=== PATIENT | male | born 1965 | race Caucasian/White ===

== ENCOUNTER 2017-12-12 14:23 | Emergency (ER) | payer BC ==
[2017-12-12] MEDS ORDERED: Ibuprofen 600 MG Tab PO ONE (14:47)
--- NOTE | 2017-12-12 14:47 | EDM.PDOC ---
ED HPI GENERAL MEDICAL PROBLEM - General Chief Complaint: Back Pain or Injury Stated Complaint: LOWER BACK PAIN, FELL OF A HORSE Time Seen by Provider: 12/12/17 14:23 Source of Information: Reports: Patient, Family History Limitations: Reports: No Limitations - History of Present Illness INITIAL COMMENTS - FREE TEXT/NARRATIVE: 52 y.o.w.m came to the ed a few days after he fell off his hours. He has lower back pain since, was at work and was asked to be check out in the ed. Pt had back pain in the past from prev injuries. Pt has difficulty to bed forward and turn his upper body. No N/V/d or dizziness No other acute medical issues. BP: 128/94 Pulse 60 RR 18 Pulse ox 98% on RA Temp 36.8 Onset Date: 12/08/17 Onset Time: 19:00 Duration: Day(s):, Getting Worse, Intermittent Location: Reports: Back Quality: Reports: Ache, Dull Improves with: Reports: None Worsens with: Reports: Movement Context: Reports: Trauma (fell of hourse) Associated Symptoms: Reports: No Other Symptoms lower back Pain Score (Numeric/FACES): 5 - Related Data Allergies Allergy/AdvReac Type Severity Reaction Status Date / Time No Known Allergies Allergy Verified 12/12/17 15:06 Home Meds: Home Meds Atenolol/Chlorthalidone [Atenolol-Chlorthalidone 50-25] 1 tab PO DAILY 12/12/17 [History] ED ROS GENERAL - Review of Systems Review Of Systems: See Below Constitutional: Reports: No Symptoms HEENT: Reports: No Symptoms Respiratory: Reports: No Symptoms Cardiovascular: Reports: No Symptoms Endocrine: Reports: No Symptoms GI/Abdominal: Reports: No Symptoms : Reports: No Symptoms Musculoskeletal: Reports: Back Pain Skin: Reports: No Symptoms Neurological: Reports: No Symptoms Psychiatric: Reports: No Symptoms Hematologic/Lymphatic: Reports: No Symptoms Immunologic: Reports: No Symptoms ED EXAM,LOWER BACK PAIN/INJURY - Physical Exam Exam: See Below Exam Limited By: No Limitations General Appearance: Alert, WD/WN, Mild Distress Eye Exam: Bilateral Eye: Normal Inspection Ears: Normal External Exam, Normal Canal, Hearing Grossly Normal Nose: Normal Inspection, Normal Mucosa, No Blood Throat/Mouth: Normal Inspection Head: Atraumatic, Normocephalic Neck: Normal Inspection, Supple, Non-Tender, Full Range of Motion Respiratory/Chest: No Respiratory Distress, Lungs Clear, Normal Breath Sounds Cardiovascular: Normal Peripheral Pulses, Regular Rate, Rhythm, No Edema, No Gallop GI/Abdominal: Normal Bowel Sounds, Soft, Non-Tender, No Organomegaly (Male) Exam: No Hernia Rectal (Males) Exam: Deferred Back Exam: Decreased Range of Motion, Muscle Spasm, Vertebral Tenderness Extremities: Normal Inspection, Normal Range of Motion, Non-Tender, Normal Capillary Refill Neurological: Alert, Normal Mood/Affect Psychiatric: Normal Affect, Normal Mood Skin Exam: Warm, Dry, Intact, Normal Color, No Rash Lymphatic: No Adenopathy Course - Vital Signs Text/Narrative:: 52 y.o.w.m came to the ed a few days after he fell off his hours. He has lower back pain since, was at work and was asked to be check out in the ed. Pt had back pain in the past from prev injuries. Pt has difficulty to bed forward and turn his upper body. No N/V/d or dizziness No other acute medical issues. BP: 128/94 Pulse 60 RR 18 Pulse ox 98% on RA Temp 36.8 PE: WNWD W M with low back pain. Imaging: Recent appearing mild to moderate L2 compression Fx Impression: Recent appearing mild to moderate L2 compression Fx, Back pain Tx: ICE, Motrin Reexam: Improved Plan: D/C with instructions Last Recorded V/S: Last Vital Signs Temp 36.8 C 12/12/17 16:10 Pulse 52 L 12/12/17 16:10 Resp 18 12/12/17 14:30 BP 110/76 12/12/17 16:10 Pulse Ox 98 12/12/17 16:10 - Orders/Labs/Meds Orders: Active Orders 24 hr Category Date Time Status Lumbar Spine 2 or 3V [CR] Stat Exams 12/12/17 14:49 Taken UA W/MICROSCOPIC [URIN] Stat Lab 12/12/17 14:45 Ordered Ice Therapy [OM.PC] Routine Oth 12/12/17 14:47 Ordered Labs: Laboratory Tests 12/12/17 Range/Units 14:45 Urine Color Yellow (YELLOW) Urine Appearance Clear (CLEAR) Urine pH 8.0 H (5.0-6.5) Ur Specific [place] 1.010 (1.010-1.025) Urine Protein Negative (NEGATIVE) mg/dL Urine Glucose (UA) Normal (NEGATIVE) mg/dL Urine Ketones Negative (NEGATIVE) mg/dL Urine Occult Blood Negative (NEGATIVE) Urine Nitrite Negative (NEGATIVE) Urine Bilirubin Negative (NEGATIVE) Urine Urobilinogen Normal (NEGATIVE) mg/dL Ur Leukocyte Esterase Negative (NEGATIVE) Urine RBC 0-5 (0) Urine WBC 0-5 (0) Ur Squamous Epith Cells Rare (NS,R,O) Urine Bacteria Rare H (NS) Meds: Medications Discontinued Medications Generic Name Dose Route Start Last Admin Trade Name Freq PRN Reason Stop Dose Admin Ibuprofen 600 mg 12/12/17 14:47 12/12/17 15:00 Motrin PO 12/12/17 14:48 600 mg ONETIME ONE Administration Departure - Departure Time of Disposition: 16:50 Disposition: Home, Self-Care 01 Condition: Good Clinical Impression: Compression fracture of L2 Qualifiers: Encounter type: initial encounter Fracture type: closed Qualified Code(s): S32.020A - Wedge compression fracture of second lumbar vertebra, initial encounter for closed fracture - Discharge Information Instructions: Spinal Compression Fracture Referrals: Elliott Be DO [Primary Care Provider] - Noe Hong DO [Physician] - Forms: ED Department Discharge, ED Return to Work/School Form Additional Instructions: Please apply ICE to lower back, please take motrin for pain, please f/u with Ortho, please come back if your symptoms get worse acutely - My Orders Last 24 Hours: My Active Orders 12/12/17 14:45 UA W/MICROSCOPIC [URIN] Stat 12/12/17 14:47 Ice Therapy [OM.PC] Routine 12/12/17 14:49 Lumbar Spine 2 or 3V [CR] Stat - Assessment/Plan Last 24 Hours: My Active Orders 12/12/17 14:45 UA W/MICROSCOPIC [URIN] Stat 12/12/17 14:47 Ice Therapy [OM.PC] Routine 12/12/17 14:49 Lumbar Spine 2 or 3V [CR] Stat
== END 2017-12-12 17:00 | disposition home or self-care (01) ==
LOC: FB.ED 14:23
DX: S32.020A Wedge compression fracture of second lumbar vertebra, initial encounter for closed fracture (principal); V80.010A Animal-rider injured by fall from or being thrown from horse in noncollision accident, initial encounter
CPT/HCPCS: 72100; 81001; 99283; A9270